=== PATIENT | male | born 1955 | race Caucasian/White ===

== ENCOUNTER 2020-04-07 00:44 | Emergency (ER) | payer OTHER ==
[~2020-04-07] VITALS: Ht 177.8 cm; Wt 136.6 kg
[2020-04-07 01:38] LABS: BASO % 0.5 % (0.0-1.0); EOS # 0.1 10^3/uL (0.0-0.5); EOS % 1.2 % (0.0-3.0); HEMATOCRIT 44.6 % (42.0-52.0); HEMOGLOBIN 14.3 g/dl (13.5-17.5); LYMPH # 1.4 10^3/uL (1.5-5.0); LYMPH % 23.2 % (24.0-44.0); MEAN CORPUSCULAR HEMOGLOBIN 29.7 pg (27.0-33.0); MEAN CORPUSCULAR HGB CONC 32.1 g/dl (32.0-36.5); MEAN CORPUSCULAR VOLUME 92.5 fl (80.0-96.0); MONO # 0.5 10^3/uL (0.0-0.8); MONO % 8.3 % (0.0-5.0); NEUTROPHILS % 66.3 % (36.0-66.0); PLATELET COUNT, AUTOMATED 194 10^3/uL (150-450); RED BLOOD COUNT 4.82 10^6/uL (4.30-6.10)
--- NOTE | 2020-04-07 01:43 | REPVR ---
PROCEDURE INFORMATION: Exam: CT Head Without Contrast Exam date and time: 04/07/2020 1:19 AM Age: 65 years old Clinical indication: Altered mental status/memory loss; Other: Seizure TECHNIQUE: Imaging protocol: Computed tomography of the head without contrast. Radiation optimization: All CT scans at this facility use at least one of these dose optimization techniques: automated exposure control; mA and/or kV adjustment per patient size (includes targeted exams where dose is matched to clinical indication); or iterative reconstruction. COMPARISON: No relevant prior studies available. FINDINGS: Brain: Moderate volume loss. No acute intracranial hemorrhage, midline shift or intracranial mass effect. Age indeterminate low density involving the right caudate head. Cerebral ventricles: No hydrocephalus. Bones/joints: Unremarkable. No acute fracture. Paranasal sinuses: Visualized sinuses are unremarkable. No fluid levels. Mastoid air cells: Mild partial opacification of the left mastoid air cells. Soft tissues: Unremarkable. IMPRESSION: 1. Age indeterminate low density involving the right caudate head, MRI may be considered. 2. No acute intracranial hemorrhage. Electronically signed by: Baldemar Gilliam On 04/07/2020 01:43:07 AM
--- NOTE | 2020-04-07 01:59 | REPVR ---
PROCEDURE INFORMATION: Exam: XR Chest, 1 View Exam date and time: 04/07/2020 1:52 AM Age: 65 years old Clinical indication: Shortness of breath; Additional info: Altered mental status TECHNIQUE: Imaging protocol: XR of the chest Views: 1 view. COMPARISON: No relevant prior studies available. FINDINGS: Lungs: No consolidation. Pleural spaces: Unremarkable. No pleural effusion. No pneumothorax. Heart/Mediastinum: Unremarkable. No cardiomegaly. Vasculature: Elongation of the thoracic aorta. Diaphragm: Elevation of the right hemidiaphragm. Bones/joints: Unremarkable. IMPRESSION: No acute cardiopulmonary process. Electronically signed by: Baldemar Gilliam On 04/07/2020 01:59:29 AM
[2020-04-07 02:04] LABS: ACETAMINOPHEN LEVEL < 2.0 UG/ML (10.0-30.0); ALBUMIN 3.6 GM/DL (3.2-5.2); ALT/SGPT 32 U/L (12-78); BILIRUBIN,DIRECT 0.2 MG/DL (0.0-0.2); BILIRUBIN,TOTAL 0.3 MG/DL (0.2-1.0); BLOOD UREA NITROGEN 24 MG/DL (7-18); CALCIUM LEVEL 9.1 MG/DL (8.8-10.2); CARBON DIOXIDE LEVEL 27 MEQ/L (21-32); CHLORIDE LEVEL 105 MEQ/L (98-107); CK-MB VALUE MASS 2.4 NG/ML (<3.6); CPK CREATINE PHOSPHOKINASE 117 U/L (39-308); CREATININE FOR GFR 0.97 MG/DL (0.70-1.30); ETHYL ALCOHOL (ETHANOL) < 0.003 % (0.000-0.010); GLOMERULAR FILTRATION RATE > 60.0 (>49); GLUCOSE, FASTING 105 MG/DL (70-100); MB/CK RELATIVE INDEX 2.05 (< OR =4); POTASSIUM SERUM 3.8 MEQ/L (3.5-5.1); SALICYLATE LEVEL < 1.7 MG/DL (5.0-30.0); SODIUM LEVEL 141 MEQ/L (136-145); TOTAL PROTEIN 6.5 GM/DL (6.4-8.2); TROPONIN I < 0.02 NG/ML (< 0.10)
[2020-04-07] MEDS ORDERED: NS 1,000 ML IV ONE (02:45)
--- NOTE | 2020-04-07 05:59 | REPVR ---
PROCEDURE INFORMATION: Exam: MR Head Without Contrast Exam date and time: 04/07/2020 5:50 AM Age: 65 years old Clinical indication: Other: Hypodensity, rads request TECHNIQUE: Imaging protocol: MR of the head without contrast. COMPARISON: CT Head without contrast 04/07/2020 1:26 AM FINDINGS: Brain: There is no extra-axial collection or intra-axial mass. Mild diffuse volume loss is within the range of normal for patient age. There are scattered foci of increased T2/FLAIR hyperintensity within the periventricular and subcortical white matter and substance of the celine, nonspecific but typically small-vessel ischemia in this age group. There is no diffusion restriction. There is a chronic lacunar infarct within the left thalamus. Cerebral ventricles: Prominence of the ventricular system is commensurate with volume loss. Pituitary gland and sella: There is an expanded, empty sella. Bones/joints: Unremarkable. Paranasal sinuses: Normal as visualized. No acute sinusitis. Mastoid air cells: Normal as visualized. No mastoid effusion. Orbital cavity: Unremarkable. Soft tissues: Unremarkable. IMPRESSION: No acute intracranial abnormality. Chronic changes. Electronically signed by: Argelia Zelaya On 04/07/2020 05:59:16 AM
--- NOTE | 2020-04-07 06:02 | REPVR ---
PROCEDURE INFORMATION: Exam: MR Angiogram Head Without Contrast, Arteries Exam date and time: 04/07/2020 5:50 AM Age: 65 years old Clinical indication: Other: Hypodensity, rads request TECHNIQUE: Imaging protocol: MR angiogram head without contrast. Exam focused on the arteries. 3D rendering (Not supervised by radiologist): MIP and/or 3D reconstructed images were created by the technologist. COMPARISON: CT Head without contrast 04/07/2020 1:26 AM FINDINGS: ANTERIOR CIRCULATION: Right internal carotid artery: Intracranial segment is patent with no significant stenosis. No aneurysm. Right middle cerebral artery: No occlusion or significant stenosis. No aneurysm. Right anterior cerebral artery: No occlusion or significant stenosis. No aneurysm. Left internal carotid artery: Intracranial segment is patent with no significant stenosis. No aneurysm. Left middle cerebral artery: No occlusion or significant stenosis. No aneurysm. Left anterior cerebral artery: No occlusion or significant stenosis. No aneurysm. POSTERIOR CIRCULATION: Right vertebral artery: No occlusion or significant stenosis. No aneurysm. Left vertebral artery: No occlusion or significant stenosis. No aneurysm. Basilar artery: No occlusion or significant stenosis. No aneurysm. Right posterior cerebral artery: There is a origin of the right posterior cerebral artery. No occlusion or significant stenosis. No aneurysm. Left posterior cerebral artery: No occlusion or significant stenosis. No aneurysm. IMPRESSION: No stenosis or occlusion. Electronically signed by: Argelia Zelaya On 04/07/2020 06:02:13 AM
[2020-04-07] MEDS ORDERED: levETIRAcetam 250MG TABLET (KEPPRA) PO ONE (06:45)
[2020-04-07] MEDS ORDERED: LISI20TA35 PO (07:00)
[2020-04-07] MEDS ORDERED: METF750T36 PO (07:00)
[2020-04-07] MEDS ORDERED: ELIQ2.5T PO (07:00)
[2020-04-07] MEDS ORDERED: OMEP-221 PO (07:00)
[2020-04-07] MEDS ORDERED: KEPP1TAB PO (07:29)
[2020-04-07 08:55] VITALS: BP 145/72
--- NOTE | 2020-04-07 19:34 | ECGEPIP ---
[facility] - ED Test Date: 2020-04-07 Pat Name: RAHEEL HOOVER Department: Room: - Gender: Male [employer]: er : 1955 Requested By: STONE Wyatt Order Number: [id number] Reading MD: Wu Jackson Measurements Intervals [place] Rate: 88 P: 45 [place]: 195 QRS: 7 QRSD: 100 T: 13 QT: 356 QTc: 432 Interpretive Statements SINUS RHYTHM POOR R WAVE PROGRESSION POSSIBLE INFERIOR MYOCARDIAL INFARCTION, PROBABLY OLD NO PRIORS FOR COMPARISON Electronically Signed on 04-07-2020 19:34:19 EST by Wu Jackson
== END 2020-04-07 09:50 | disposition home or self-care (01) ==
LOC: M ED 00:44
DX: G40.909 Epilepsy, unspecified, not intractable, without status epilepticus (principal); E11.9 Type 2 diabetes mellitus without complications; Z79.899 Other long term (current) drug therapy; Z79.84 Long term (current) use of oral hypoglycemic drugs; Z79.01 Long term (current) use of anticoagulants